=== PATIENT | male | born 1995 | race Two or more races ===

== ENCOUNTER 2017-01-01 14:01 | Emergency (ER) | payer SELFPAY ==
[2017-01-01] MEDS ORDERED: Ibuprofen 800 MG Tab PO ONE (14:24)
[2017-01-01] MEDS ORDERED: Benzonatate 100 MG Cap PO ONE (14:24)
--- NOTE | 2017-01-01 14:30 | EDM.PDOC ---
ED HPI GENERAL MEDICAL PROBLEM - General Time Seen by Provider: 01/01/17 14:30 Source of Information: Reports: Patient History Limitations: Reports: No Limitations - History of Present Illness INITIAL COMMENTS - FREE TEXT/NARRATIVE: HISTORY AND PHYSICAL: History of present illness: [22-year-old male with no significant past medical history now presents to the emergency department with body aches fatigue and fevers. Denies headache or stiff neck. No chest pain or shortness of air. Denies abdominal pain. No vomiting or diarrhea.] Review of systems: As per history of present illness and below otherwise all systems reviewed and negative. Past medical history: As per history of present illness and as reviewed below otherwise noncontributory. Surgical history: As per history of present illness and as reviewed below otherwise noncontributory. Social history: No reported history of drug or alcohol abuse. Family history: As per history of present illness and as reviewed below otherwise noncontributory. Physical exam: Well-appearing patient distress benign exam HEENT: Atraumatic, normocephalic, pupils reactive, negative for conjunctival pallor or scleral icterus, mucous membranes moist, throat clear, neck supple, nontender, trachea midline. Lungs: Clear to auscultation, breath sounds equal bilaterally, chest nontender. Heart: S1S2, regular, negative for clicks, rubs, or JVD. Abdomen: Soft, nondistended, nontender. Negative for masses or hepatosplenomegaly. Negative for costovertebral tenderness. Pelvis: Stable nontender. Genitourinary: Deferred. Rectal: Deferred. Extremities: Atraumatic, negative for cords or calf pain. Neurovascular unremarkable. Neuro: Awake, alert, oriented. Cranial nerves grossly unremarkable. Cerebellum unremarkable. Motor and sensory unremarkable throughout. Exam nonfocal. Diagnostics: [] Therapeutics: [] Impression: [Viral syndrome] Plan: [Signs and symptoms consistent with viral syndrome discussed with patient possibility of influenza however same supportive therapy is appropriate whether or not he actually has this diagnosis. No further workup or treatment indicated. Patient stable for outpatient follow-up which he agrees with. Strict return precautions given] Definitive disposition and diagnosis as appropriate pending reevaluation and review of above. Generalized Pain Score (Numeric/FACES): 2 - Related Data Allergies Allergy/AdvReac Type Severity Reaction Status Date / Time No Known Allergies Allergy Verified 01/01/17 14:29 Home Meds: Home Meds Benzonatate 200 mg PO TID #30 capsule 01/01/17 [Rx] ED ROS GENERAL - Review of Systems Review Of Systems: See Below (History of present illness) ED EXAM, GENERAL - Physical Exam Exam: See Below (History of present illness) Course - Vital Signs Last Recorded V/S: Last Vital Signs Temp 37.7 C 01/01/17 14:34 Pulse 99 01/01/17 15:43 Resp 16 01/01/17 15:43 BP 136/70 01/01/17 15:43 Pulse Ox 100 01/01/17 15:43 - Orders/Labs/Meds Meds: Medications Discontinued Medications Generic Name Dose Route Start Last Admin Trade Name Vicki PRN Reason Stop Dose Admin Benzonatate 200 mg 01/01/17 14:24 01/01/17 14:34 Tessalon Perles PO 01/01/17 14:25 200 mg ONETIME ONE Administration Sodium Chloride 1,000 mls @ 999 mls/hr 01/01/17 15:07 01/01/17 15:00 Normal Saline IV 01/01/17 16:07 999 mls/hr .Bolus ONE Administration Ibuprofen 800 mg 01/01/17 14:24 01/01/17 14:34 Motrin PO 01/01/17 14:25 800 mg ONETIME ONE Administration Departure - Departure Time of Disposition: 15:45 Disposition: Home, Self-Care 01 Clinical Impression: Viral syndrome, Myalgia, History of fever - Discharge Information Prescriptions: Benzonatate 200 mg PO TID #30 capsule Instructions: Viral Respiratory Infection, [id number] Referrals: PCP,None [Primary Care Provider] - Forms: ED Department Discharge Additional Instructions: You have a viral syndrome. There is a possibility that your viral syndrome is influenza which is just a specific viral syndrome. Common symptoms include fever , fatigue,body aches, headache. Take 800 mg of ibuprofen every 6 hours if you have fevers or aches and pains. Drink Plenty of fluids. Use Mucinex DM which is [id number] medicine for cough and that also helps break up mucus. Take Tessalon Perles as needed for persistent cough unrelieved by Mucinex DM. Followup with your DrOliver in one to 2 days and return immediately for new severe or worsening symptoms ED HISTORY OF PRESENT ILLNESS - General Chief Complaint: Respiratory Problem Stated Complaint: FEVER, COUGH Time Seen by Provider: 01/01/17 14:30 Source of Information: Reports: Patient History Limitations: Reports: No Limitations - History of Present Illness INITIAL COMMENTS - FREE TEXT/NARRATIVE: HISTORY AND PHYSICAL: History of present illness: [] Review of systems: As per history of present illness and below otherwise all systems reviewed and negative. Past medical history: As per history of present illness and as reviewed below otherwise noncontributory. Surgical history: As per history of present illness and as reviewed below otherwise noncontributory. Social history: No reported history of drug or alcohol abuse. Family history: As per history of present illness and as reviewed below otherwise noncontributory. Physical exam: HEENT: Atraumatic, normocephalic, pupils reactive, negative for conjunctival pallor or scleral icterus, mucous membranes moist, throat clear, neck supple, nontender, trachea midline. Lungs: Clear to auscultation, breath sounds equal bilaterally, chest nontender. Heart: S1S2, regular, negative for clicks, rubs, or JVD. Abdomen: Soft, nondistended, nontender. Negative for masses or hepatosplenomegaly. Negative for costovertebral tenderness. Pelvis: Stable nontender. Genitourinary: Deferred. Rectal: Deferred. Extremities: Atraumatic, negative for cords or calf pain. Neurovascular unremarkable. Neuro: Awake, alert, oriented. Cranial nerves II through XII unremarkable. Cerebellum unremarkable. Motor and sensory unremarkable throughout. Exam nonfocal. Diagnostics: [] Therapeutics: [] Impression: [] Plan: [] Definitive disposition and diagnosis as appropriate pending reevaluation and review of above. - Related Data Allergies/ADRs: Allergies Allergy/AdvReac Type Severity Reaction Status Date / Time No Known Allergies Allergy Verified 01/01/17 14:29 Home Meds: Home Meds Benzonatate 200 mg PO TID #30 capsule 01/01/17 [Rx] Departure - Departure Time of Disposition: 15:45 Disposition: Home, Self-Care 01 Condition: Good Clinical Impression: Viral syndrome, Myalgia, History of fever Prescriptions: Benzonatate 200 mg PO TID #30 capsule Instructions: Viral Respiratory Infection, [id number] Referrals: PCP,None [Primary Care Provider] - Forms: ED Department Discharge Additional Instructions: You have a viral syndrome. There is a possibility that your viral syndrome is influenza which is just a specific viral syndrome. Common symptoms include fever , fatigue,body aches, headache. Take 800 mg of ibuprofen every 6 hours if you have fevers or aches and pains. Drink Plenty of fluids. Use Mucinex DM which is [id number] medicine for cough and that also helps break up mucus. Take Tessalon Perles as needed for persistent cough unrelieved by Mucinex DM. Followup with your Dr. in one to 2 days and return immediately for new severe or worsening symptoms
[2017-01-01] MEDS ORDERED: Sodium Chloride 0.9% 1,000 ML IV ONE (15:07)
[2017-01-01 15:47] VITALS: BP 136/70
== END 2017-01-01 15:43 | disposition home or self-care (01) ==
LOC: MW.ED 14:01
DX: B34.9 Viral infection, unspecified (principal)
CPT/HCPCS: 96360; 99283; A9270; J7040